=== PATIENT | male | born 1935 | race Caucasian/White ===

== ENCOUNTER 2018-04-02 20:00 | Emergency (ER) | payer OTHER ==
[2018-04-02] MEDS ORDERED: OXYMETAZOLINE 30 ML NASAL SPRAY ONE (20:07)
[2018-04-02] MEDS ORDERED: TRANEXAMIC ACID 1,000 MG/10 ML VIAL ONE (20:07)
[2018-04-02] MEDS ORDERED: OXYMETAZOLINE 30 ML NASAL SPRAY EACHNARE ONE (20:08)
[2018-04-02] MEDS ORDERED: TRANEXAMIC ACID 1,000 MG/10 ML VIAL TP ONE (20:09)
--- NOTE | 2018-04-02 20:10 | EDPHY ---
H & P Time Seen by Provider: 04/02/18 20:04 HPI/ROS: CHIEF COMPLAINT: Epistaxis HISTORY OF PRESENT ILLNESS: The patient is an 83-year-old man who comes to the emergency department via EMS for epistaxis from his right nares. He denies trauma or recent illness or fever. He does not take blood thinners. He states that it bled for about an hour earlier today and then again half an hour prior to arrival. It is now stopped after clamping by EMS. He has not used any medications. He denies lightheadedness or dizziness. No chest pain. REVIEW OF SYSTEMS: Constitutional: denies: chills, fever, recent illness, recent injury EENTM: See HPI Respiratory: denies: cough, shortness of breath Cardiac: denies: chest pain, irregular heart rate, lightheadedness, palpitations Gastrointestinal/Abdominal: denies: abdominal pain, diarrhea, nausea, vomiting, blood streaked stools Genitourinary: denies: dysuria, frequency, hematuria, pain Musculoskeletal: denies: joint pain, muscle pain Skin: denies: lesions, rash, jaundice, bruising Neurological: denies: headache, numbness, paresthesia, tingling, dizziness, weakness Hematologic/Lymphatic: denies: blood clots, easy bleeding, easy bruising Immunologic/allergic: denies: HIV/AIDS, transplant EXAM: GENERAL: Well-appearing, well-nourished and in no acute distress. HEAD: Atraumatic, normocephalic. EYES: Pupils equal round and reactive to light, extraocular movements intact, sclera anicteric, conjunctiva are normal. ENT: Dry blood right nares, anterior septum, TMs normal, , oropharynx clear without exudates. Moist mucous membranes. NECK: Normal range of motion, supple without lymphadenopathy or JVD. LUNGS: Breath sounds clear to auscultation bilaterally and equal. No wheezes rales or rhonchi. HEART: Regular rate and rhythm without murmurs, rubs or gallops. ABDOMEN: Soft, nontender, normoactive bowel sounds. No guarding, no rebound. No masses appreciated. BACK: No CVA tenderness, no spinal tenderness, step-offs or deformities EXTREMITIES: Normal range of motion, no pitting or edema. No clubbing or cyanosis. NEUROLOGICAL: Cranial nerves II through XII grossly intact. Normal speech, normal gait. 5/5 strength, normal movement in all extremities, normal sensation PSYCH: Normal mood, normal affect. SKIN: Warm, dry, normal turgor, no visible rashes or lesions. Source: Patient, EMS Exam Limitations: No limitations - Medical/Surgical History Hx Asthma: No Hx Chronic Respiratory Disease: No Hx Diabetes: No Hx Cardiac Disease: No Hx Renal Disease: No Hx Cirrhosis: No Hx Alcoholism: No Hx HIV/AIDS: No Hx Splenectomy or Spleen Trauma: No - Family History Significant Family History: No pertinent family hx - Social History Smoking Status: Former smoker Alcohol Use: Sober Drug Use: None Constitutional: Initial Vital Signs Temperature (C) 36.5 C 04/02/18 20:04 Heart Rate 60 04/02/18 20:04 Respiratory Rate 18 04/02/18 20:04 Blood Pressure 199/97 H 04/02/18 20:04 O2 Sat (%) 95 04/02/18 20:04 O2 Delivery Mode Room Air Allergies/Adverse Reactions: No Known Allergies Allergy (Verified 12/28/11 20:29) Home Medications: Medication Instructions Recorded Herbals/Supplements -Info Only 10/21/17 Medical Decision Making Procedures: The patient's nares were instilled with Afrin bilaterally and a clamp placed. Bleeding had stopped. I then packed his right nares with a cotton ball soaked in TXA. Bleeding has not restarted. He is eager to go home. He will remove it tomorrow as instructed. We discussed steps to take at home if his bleeding returns and indications for returning. ED Course/Re-evaluation: Patient tolerated road test. He has not begun rebleeding. Will discharge him at this time. Differential Diagnosis: Partial list of the Differential diagnosis considered include but were not limited to; anterior epistaxis, posterior epistaxis and although unlikely based on the history and physical exam, I also considered trauma, infection, foreign body. I discussed these differential diagnoses and the plan with the patient as well as the usual and expected course. The patient understands that the diagnosis is provisional and that in medicine we are not always correct and that further workup is often warranted. Usual and customary warnings were given. All of the patient's questions were answered. The patient was instructed to return to the emergency department should the symptoms at all worsen or return, otherwise to followup with the physician as we discussed. - Data Points Medications Given: Discontinued Medications Oxymetazoline HCl (Afrin Nasal [place]) 2 sprays EACHNARE EDNOW ONE Stop: 04/02/18 20:09 Last Admin: 04/02/18 20:11 Dose: 2 spray Tranexamic Acid (Cyklokapron) 500 mg TP EDNOW ONE Stop: 04/02/18 20:10 Last Admin: 04/02/18 20:11 Dose: Not Given Departure - Departure Disposition: Home, Routine, Self-Care Clinical Impression: Acute anterior epistaxis Condition: Fair Instructions: Nosebleed (ED) Additional Instructions: Remove the cotton ball within 24 hr. Use Afrin and a nasal clamp as discussed if bleeding resumes. Return here if you cannot get it to stop Referrals: Patient,NotPresent [Unknown] - As per Instructions Jono Luevano MD [Medical Doctor] - 3-4 days, if not improved
[2018-04-02 20:53] VITALS: BP 201/95
== END 2018-04-02 21:08 | disposition home or self-care (01) ==
LOC: EDUNIT#
DX: R04.0 Epistaxis (principal); Z87.891 Personal history of nicotine dependence

== ENCOUNTER → 2019-01-25 | Day surgery (SDC) | payer OTHER ==
[~2019-01-25] MED LIST: IOPAMIDOL (ISOVUE-M 300) 15 ML VIAL ONE; TRIAMCINOLONE ACETONIDE 200 MG/5 ML MDV IM ONE
== END | disposition home or self-care (01) ==
LOC: FIMAGING 14:07
PROVIDERS: ATTEND Family Medicine
PROC: 3E0S3BZ Introduction of Anesthetic Agent into Epidural Space, Percutaneous Approach (ICD-10-PCS; principal; 2019-01-25)
PROC: 3E0S33Z Introduction of Anti-inflammatory into Epidural Space, Percutaneous Approach (ICD-10-PCS; principal; 2019-01-25)
DX: M48.061 Spinal stenosis, lumbar region without neurogenic claudication (principal)
CPT/HCPCS: J3301; Q9967